=== PATIENT | female | born 1950 | race Caucasian/White ===

== ENCOUNTER 2016-06-06 11:47 | Outpatient (CLI) | payer MEDICARE | END 2016-06-06 11:48 | disposition home or self-care (01) | DX: R74.8 Abnormal levels of other serum enzymes (principal); I10 Essential (primary) hypertension ==

== ENCOUNTER 2016-06-11 13:53 | Outpatient (CLI) | payer MEDICARE | END 2016-06-11 13:54 | disposition home or self-care (01) | DX: Z12.31 Encounter for screening mammogram for malignant neoplasm of breast (principal) ==